=== PATIENT | male | born 1980 | race Two or more races ===

== ENCOUNTER 2022-09-25 11:28 | Inpatient (IN) | payer MEDICAID ==
[~2022-09-25] VITALS: Ht 162.6 cm; Wt 59.0 kg
[2022-09-25] MEDS ORDERED: IOHEXOL 350 100 ML INFUS..BTL ONE (12:13)
[2022-09-25] MEDS ORDERED: SWABABLE VALVE TRANSFER SET EA MC ONE (12:13)
[2022-09-25] MEDS ORDERED: IV NORMAL SALINE 250 ML IV ONE (12:14)
--- NOTE | 2022-09-25 12:22 | NUR ---
Pt signed consent for Iv contrasted Ct scan, placed in the chart.
[2022-09-25 12:23] LABS: MEAN CORPUSCULAR HEMOGLOBIN 30.1 uug (23.8-33.4); MEAN CORPUSCULAR VOLUME 85.2 fL (73.0-96.2); PLATELET COUNT (AUTO) 285 K/uL (152-348)
[2022-09-25 12:27] LABS: POTASSIUM 3.7 mmol/L (3.5-5.1)
[2022-09-25] MEDS ORDERED: ONDANSETRON 4 MG/2 ML VIAL IV PRN (17:30)
[2022-09-25] MEDS ORDERED: REMEDY ESSENTIAL ZINC PASTE 113 GM TP PRN (17:30)
[2022-09-25] MEDS ORDERED: ACETAMINOPHEN 325 MG TABLET PO PRN (17:30)
--- NOTE | 2022-09-25 17:33 | NUR ---
Dr Catalan spoke to Dr Lin, Neurologist.
--- NOTE | 2022-09-25 17:54 | NUR ---
Patient is sitting up eating a sandwich
--- NOTE | 2022-09-25 19:10 | NUR ---
Patient laying on gurny with no distress noted. Patient unable to open left eye c/o pain 12/08.
--- NOTE | 2022-09-25 20:20 | NUR ---
Isacc denis in [facility] - 09/25/22 at [email or web address] [email or web address] for room assignment. Waiting for charge to to call back with room assignment.
--- NOTE | 2022-09-25 20:20 | NUR ---
Called 3rd floor for room assignment. Waiting for charge to to call back with room assignment.
--- NOTE | 2022-09-25 20:44 | NUR ---
Got room assignment from 3rd floor charge nurse room 301A.
--- NOTE | 2022-09-25 21:00 | NUR ---
Patient has in his possession 1 cellphone, 1 credit card, two $1.00, three $5.00, one $10.00, seven $20.00 and twelve $50.00. Patient refused tgo have valuable in the safe at this time.
[2022-09-25] MEDS ORDERED: INSULIN REGULAR, HUMAN 300 UNITS/3 ML VIAL SQ PRN (21:45)
[2022-09-25] MEDS ORDERED: DEXTROSE 50% 50 ML DISP.SYRIN IV PRN (21:45)
[2022-09-25] MEDS ORDERED: METF-440 PO (21:56)
[2022-09-25 22:05] VITALS: BP 136/90
--- NOTE | 2022-09-25 22:08 | NUR ---
Transfered patient to 3rd floor via wheelchair with no distress noted.
[2022-09-26] VITALS: BP 130/88
[2022-09-26 04:00] VITALS: BP 132/93
[2022-09-26] MEDS ORDERED: METF-494 PO (04:51)
--- NOTE | 2022-09-26 06:33 | NUR ---
SHIFT NOTE; REPORT GIVEN AT START OF SHIFT BY AM NURSE NELY PT IS ALERT RESPONDS TO TACTILE STIMULI NO SIGNS OF RESPIRATORY DISTRESS NOTED. PT HAS A RECTAL TUBE WHICH IS INTACT ALONG WITH GT TUBE FEEDING OF JEVITY 1.2 INFUSING AT30 ML NO SIGNS OF ABD DISTENTION RESIDUAL IS 5ML PT TOLERATED WELL. PT ALSO HAS TPN RUNNING TOLERATING ALL FEEDING AND HAS ANTIBIOTIC . MEDICATION GIVEN ORDERED NO SIGNS OF RESPIRATORY DISTRESS NOTED AND NO SIGNS OF ADVERSE REACTION FROM MEDICATION. PT REPOSITONED PER PROTOCOL . PT HS BLOOD SUGAR 124 AND AM BLOOD SUGAR 107 NO SIGNS OF DIABETIC REACTION NOTED. PT LIP WERE DRIED AND CRACKED MOUTH CARE GIVEN AND OINTMENT FOR LIPS APPLIED PT TOLERATED WELL. WILL ENDORSE TO AM NURSE AND CONTINUE TO MONITOR EVERY 2 HOURS FOR FALL AND SAFETY. Addendum: 09/26/22 at 0646 by [facility] KEMAR RN DISREGARD ABOVE NOTE DONE ON WRONG PATIENT. Addendum: 09/26/22 at 0647 by [facility] [id number] RN THE ABOVE NOTE COMPLETED ON WRONG PATIENT SO DISREGARD NOTE. Addendum: 09/26/22 at 0648 by [facility] RN8 RN DISREGARD THE ABOVE NOTE TYPED ON WRONG PATIENT
[2022-09-26 06:58] LABS: BILIRUBIN,TOTAL 1.6 mg/dL (0.2-1.0); CREATININE 0.9 mg/dL (0.6-1.3); PHOSPHOROUS 3.9 mg/dL (2.5-4.9); POTASSIUM 3.8 mmol/L (3.5-5.1); TOTAL PROTEIN, SERUM 7.3 g/dL (6.4-8.2)
[2022-09-26 07:03] LABS: HEMATOCRIT 39.3 % (36.7-47.1); MEAN CORPUSCULAR HEMOGLOBIN 29.9 uug (23.8-33.4); MEAN CORPUSCULAR VOLUME 85.6 fL (73.0-96.2); PLATELET COUNT (AUTO) 266 K/uL (152-348)
[2022-09-26] MEDS: BLOOD SUGAR DIAGNOSTIC 1 EACH STRIP VI SCH ×3 (07:12→16:47)
--- NOTE | 2022-09-26 07:45 | NUR ---
SHIFT NOTE; RECEIVED PATIENT ALERT AND ORIENTED X4 REPORT GIVEN BY JENNIE IN THE ER PT HAVING PAIN FOR PAST THREE DAYS IN LEFT EYE. ASSESSED EYE LID IS CLOSE PT HAS MRI WITH AND WITHOUT CONTRAST ORDERED PROCEDURE EXPLAINED TO PATIENT AND ANSWER WHAT WAS ON FORM. MRI FORMS SIGNED BY PATIENT AND WITNESS BY NURSE. PT ADMITTING DX IS HERRERA PALSY BUT DR HERRERA NEUROLGIST WAS CALLED WHILE PATIENT WAS IN THE ER HE WILL SEE PT AND ORDER MRI TO R/O CVA. CAT SCAN AND CTA HEAD AND NECK NEGATIVE. WILL CONTINUE TO MONITOR FOR SAFETY.ALONG WITH ENDORSING TO AM NURSE.
[2022-09-26] MEDS: INSULIN REGULAR, HUMAN 300 UNIT/3 ML VIAL SQ PRN ×3 (08:04→16:50)
--- NOTE | 2022-09-26 11:45 | NUR ---
PATIENT PICKED UP BY AMBULANCE TO [place] FOR MRI ORDERED.
[2022-09-26 12:04] VITALS: BP 130/86
--- NOTE | 2022-09-26 13:30 | NUR ---
PATIENT RETURNED BACK TO HIS ROOM BLOOD SUGAR IS 170 WITH SLIDING SCALE COVERAGE ORDERED TELE IS SR LEFT AYE STILL PUFFY AND PARTIALLY CLOSED NOT IN DISTRESS AT THIS TIME
--- NOTE | 2022-09-26 15:45 | NUR ---
PATIENT SEEN BY DR BECK REVIEWED THE MRI RESULT WITH NO NEW ORDERS AT THIS TIME.
[2022-09-26] MEDS ORDERED: ASPIRIN EC 81 MG TABLET.DR PO SCH (17:00)
[2022-09-26] MEDS ORDERED: GLIP5TAB13 PO (17:11)
[2022-09-26] MEDS ORDERED: ATOR20TA PO (17:11)
[2022-09-26] MEDS ORDERED: METF-440 PO (17:11)
[2022-09-26] MEDS ORDERED: ASPI-618 PO (17:11)
[2022-09-26 17:12] VITALS: BP 147/91
[2022-09-26] MEDS ORDERED: LISI-782 PO (17:23)
[2022-09-26] MEDS ORDERED: METFORMIN HCL 500 MG TABLET PO SCH (18:00)
--- NOTE | 2022-09-26 18:03 | NUR ---
DISCHARGE ORDER NOTED PATIENT AWARE AND STATED THAT HIS FRIEND WILL BE ABLE TO PICK HIM UP BY
--- NOTE | 2022-09-26 18:15 | NUR ---
PATIENT DISCHARGED PICKED UP BY HIS FRIEND IN SATISFACTORY CONDITION STILL HAS PTOSIS INSTRUCTED TO FOLLOW UP WITH AN EYE DOCTOR AND HE EXPRESSED UNDERSTANDING.
[2022-09-26] MEDS ORDERED: ATORVASTATIN 20 MG TABLET PO SCH (21:00)
[2022-09-27] MEDS ORDERED: METFORMIN HCL 500 MG TABLET PO SCH (18:00)
== END 2022-09-26 18:25 | disposition home or self-care (01) | DRG 48 ==
LOC: ER 11:38 → TELE3 21:58
PROVIDERS: ADMIT Internal Medicine; ATTEND Internal Medicine
DX: G51.0 Bell's palsy (principal); E11.65 Type 2 diabetes mellitus with hyperglycemia; E78.5 Hyperlipidemia, unspecified; E80.4 Gilbert syndrome; E86.0 Dehydration; I45.10 Unspecified right bundle-branch block; Z79.84 Long term (current) use of oral hypoglycemic drugs; Z20.822 Contact with and (suspected) exposure to COVID-19
CPT/HCPCS: 36415; 70496; 70551; 83735; 84100; 85025; 85651; 93005; 93307; 93880; A4663; G0378; J1815; Q9967